=== PATIENT | female | born 1995 | race Caucasian/White ===

== ENCOUNTER 2025-06-26 16:54 | Emergency (ER) | payer MEDICAID, SELFPAY ==
[2025-06-26 16:54] VITALS: BP 131/85; PULSE 77; RESP 16; TEMP 37; O2SAT 100; BMI 30.6
[2025-06-26 16:56] VITALS: BP 131/85; PULSE 77; RESP 16; TEMP 37; O2SAT 100
[2025-06-26 17:18] LABS: Mucous, Urine 0 SEEN /hpf (<or=2+)
--- NOTE | 2025-06-26 17:22 | EX.ED.DYSGE1 ---
HPI History of Present Illness Chief Complaint: Flank Pain Informant: patient Narrative Narrative: Left flank pain isolated started today. No radicular symptoms. Urine frequency however drinks a lot of water. No nausea vomiting no fevers. The main concern is having kidney injury at age 17. This 13 years ago she states she worked 3 jobs at that time did not drink a lot of water. Symptoms proved with fluids. Last menstrual period of this month. No abdominal pain. She is here with concerns due to her history of kidney injury. She does not have a PCP. Denies any trauma denies any strenuous activities. [facility] Medical History Acute kidney failure Allergy/AdvReac Type Severity Reaction Status Date / Time No Known Allergies Allergy Verified 06/26/25 16:56 Social History Smoking Status: Current every day smoker tobacco type: e-cigarettes ROS ROS ED Constitutional Constitutional ED: Denies chills, fever(s) or sweats ENT ENT ED: Denies sore throat Cardiovascular Cardiovascular: Denies chest pain, leg edema, palpitations or racing heartbeat Respiratory/Chest Respiratory/Chest: Denies cough, dyspnea or dyspnea on exertion Gastrointestinal Gastrointestinal: Denies abdominal pain, diarrhea, nausea or vomiting Genitourinary Genitourinary ED: Reports urinary frequency; Denies dysuria or hematuria Musculoskeletal Musculoskeletal: Reports back pain; Denies extremity pain or neck pain Integumentary Denies rash or wounds Neurologic Neurologic: Denies headache(s), paresthesias or weakness EXAM Physical Exam Const Vital Signs: 06/26/25 16:54 06/26/25 16:56 06/26/25 18:53 Temperature 98.6 F 98.6 F Temperature Source Oral Oral Pulse Rate 77 77 74 Respiratory Rate 16 16 18 Blood Pressure 131/85 H 131/85 H 128/81 H Blood Pressure Mean 100 100 96 Pulse Ox 100 100 98 Oxygen Delivery Method Room Air Room Air Room Air 06/26/25 19:33 Temperature 97.9 F Temperature Source Pulse Rate 71 Respiratory Rate 18 Blood Pressure 122/70 H Blood Pressure Mean 87 Pulse Ox 98 Oxygen Delivery Method Positive well nourished and well developed General Appearance ED: well developed and NAD HEENT Reports moist mucous membranes normocephalic and atraumatic Eyes General Eye ED: Yes normal appearance of both eyes Neck full ROM Chest Wall Chest: Negative for tenderness Resp normal respiratory effort and normal air movement Effort and Inspection: symmetric chest movement; Negative for respiratory distress Cardio regular rate, regular rhythm and no murmurs Peripheral Pulses: pulses 2+ throughout GI normal to inspection, nondistended, normoactive bowel sounds and non-tender Palpation: Negative for guarding or rebound tenderness present Back/Spine Back/Spine Narrative: Mild tenderness left flank there is no rash. Extremity normal to inspection General Extremety ED: Negative for edema or tenderness General Extremity: Negative for edema Neuro oriented x3 and no sensory deficits noted Sensorium / Orientation: awake and alert Skin no rashes or lesions noted and no wounds MDM MDM MDM Narrative Medical decision making narrative: Interventions / MDM: Differential diagnosis: Flank pain, musculoskeletal pain. Diagnosis considered but do not suspect: No clinical presentation for concerning kidney stone. My EKG interpretation: N/A Imaging independently reviewed and interpreted by myself: N/A External documents reviewed: N/A Test considered but not ordered:N/A ED course: Nontoxic well-appearing. Patient declines any pain medicines. Here with concerns for her history of kidney injury. Will check labs and urine. Will give IV fluids. Will reevaluate. Labs normal urine negative. Patient reassured on findings. She will use Tylenol as needed. All questions were answered. Re-evaluation: stable Disposition discussed with patient/family/significant other: Patient Case discussed with consulting clinician: N/A This note was generated with [employer] dictation software. It may contain incorrect words, spelling, and punctuation that were not noted in checking the note before signing. Lab Data Attestation: I reviewed the patient's lab results. Labs: Laboratory Results - last 24 hr 06/26/25 17:10 WBC 7.6 RBC 4.11 L Hgb 12.7 Hct 36.9 L MCV 89.8 MCH 30.9 MCHC 34.4 RDW Std Deviation 41.1 RDW Coeff of Felipe 12.5 Plt Count 305 MPV 10.2 Immature Gran % (Auto) 0.100 Neut % (Auto) 51.2 Lymph % (Auto) 36.5 [place] % (Auto) 6.2 Eos % (Auto) 5.1 H Baso % (Auto) 0.9 Absolute Neuts (auto) 3.9 Absolute Lymphs (auto) 2.78 Nucleated RBC % 0 Sodium 138 Potassium 4.1 Chloride 102 Carbon Dioxide 23.3 Anion Gap 12 BUN 8 Creatinine 0.85 Estim Creat Clear Calc 124.16 Est GFR (MDRD) Non-Af 96 BUN/Creatinine Ratio 9.1 L Glucose 94 Calcium 9.0 Urine Color Straw Urine Clarity Clear Urine pH 7.0 Ur Specific [place] 1.010 Urine Protein 15 H Urine Glucose (UA) Normal Urine Ketones Negative Urine Occult Blood Negative Urine Nitrite Negative Urine Bilirubin Negative Urine Urobilinogen Normal Ur Leukocyte Esterase Negative Urine RBC 0-5 SEEN Urine WBC 0-5 SEEN Ur Squamous Epith Cells 0-5 SEEN Urine Bacteria 0 SEEN Urine Mucus 0 SEEN Discharge Plan Triage Chief Complaint: Flank Pain ED Provider: Jovany Crouch Dx/Rx/DC Orders Clinical Impression: Flank pain, History of kidney injury Instructions: ED Flank Pain with Uncertain Cause Primary Care Provider: Care Physician,No Primary Referrals: Georgie Clarke MD [Med Staff - Active Staff] - 1-2 Weeks Care Physician,No Primary [Primary Care Provider] - Activity Restrictions/Additional Instructions: Your labs were normal creatinine normal at 0.85 with GFR 96. Your urine is negative. Use Tylenol as needed. Follow-up with your doctor. Print Language: Latvian Disposition Disposition: Home, Self Care Discharge Date/Time: 06/26/25 19:34
[2025-06-26] MEDS: 0.9% Normal Saline (500mL Bag) 500 ML 1000 ML IV (17:42)
[2025-06-26 17:59] LABS: Anion Gap 12 (5-15); BUN 8 mg/dL (4-19); BUN/Creat Ratio 9.1 RATIO (10-20); Calcium,Total 9.0 mg/dL (7.6-11.0); Carbon Dioxide 23.3 mmol/L (21.0-32.0); Chloride 102 mmol/L (98-108); Estimated Creatinine Clearance 124.16 ml/min (50-250); Glucose 94 mg/dL (70-99); Potassium 4.1 mmol/L (3.3-5.1)
[2025-06-26 18:02] LABS: Hematocrit 36.9 % (37-47); Hemoglobin 12.7 g/dL (12.0-15.0); Immature Granulocytes Count 0.010 X10^3/uL (0.0-0.0); Mean Corp Hgb Conc 34.4 g/dL (32-36); Mean Corpuscular Volume 89.8 fL (81-99); Mean Platelet Vol. 10.2 fl (6.2-12.0); NRBC Flagged by Analyzer 0 % (0-5); Platelet Count 305 K/mm3 (150-450); RBC Distribution Width CV 12.5 % (11.6-14.6); RBC Distribution Width SD 41.1 fl (35.1-43.9); Red Blood Count 4.11 M/mm3 (4.2-5.4); White Blood Count 7.6 K/mm3 (4.4-11.0)
[2025-06-26 18:52] LABS: Color, Urine Straw (Yellow); Glucose, Dipstick Normal (Normal); Ketone-Dipstick Negative (Negative); Leukocyte Esterase-Dipstick Negative /ul (Negative); Nitrite-Dipstick Negative (Negative); Occult Blood-Urine Negative /ul (Negative); Protein-Dipstick 15 mg/dl (Negative); Specific Gravity, Urine 1.010 (1.002-1.030); Urine Bilirubin Dipstick Negative (Negative)
[2025-06-26 18:53] VITALS: BP 128/81; PULSE 74; RESP 18; O2SAT 98
[2025-06-26 19:17] LABS: Red Blood Cells-Urine 0-5 SEEN /hpf (0-5); Squamous Epithelial Cells - UA 0-5 SEEN /hpf (5-10)
[2025-06-26 19:33] VITALS: BP 122/70; PULSE 71; RESP 18; TEMP 36.6; O2SAT 98
== END 2025-06-26 19:34 | disposition home or self-care (01) ==
PROVIDERS: Emergency Provider Emergency Medicine; Visit Provider Emergency Medicine
DX: R10.9 Unspecified abdominal pain (principal); F17.290 Nicotine dependence, other tobacco product, uncomplicated
CPT/HCPCS: 80048; 81001; 85025; 96360; 99284